=== PATIENT | male | born 1960 | race Hispanic/Latino ===

== ENCOUNTER 2021-01-03 08:18 | Emergency (ER) | payer BC ==
[2021-01-03] MEDS ORDERED: KETOROLAC 30 MG/1 ML INJ IM ONE (09:17)
--- NOTE | 2021-01-03 09:36 | Emergency Department Report ---
HPI - General Chief Complaint: Fall Time Seen by Provider: 01/03/21 09:05 - HPI HPI: 60-year-old male presents to the emergency department with a complaint of left lower rib pain since having a fall 2 nights ago, the night of . Patient says that he was doing something in his kitchen when his dog got between his feet and caused him to fall directly forward onto his chest onto the stone kitchen floor. Since that time he has been sharp spasmodic pain to the rib cage that worsens with movements and deep breathing. He tried a tramadol for his pain without any relief. He has a past medical history of hypertension, bipolar disorder, and disc disease. ED Past Medical Hx - Past Medical History Hx Hypertension: Yes Hx Arthritis: Yes Hx Psychiatric Treatment: Yes (bipolar) - Surgical History Additional Surgical History: "numerous ortho" - Social History Smoking Status: Current Every Day Smoker - Medications Home Medications: Home Medications Medication Instructions Recorded Confirmed Last Taken Type Aspirin EC [Halfprin EC] 81 mg PO QDAY 04/10/14 03/26/16 03/26/16 History Divalproex Sodium [Depakote] 125 mg PO BID 04/10/14 03/26/16 03/25/16 History atenoloL [Tenormin] 50 mg PO DAILY 04/10/14 03/26/16 03/25/16 History Meloxicam 15 mg PO DAILY 03/26/16 03/26/16 03/25/16 History Zolpidem Tartrate 10 mg PO QHS PRN 03/26/16 03/26/16 03/25/16 History HYDROcodone/APAP 5-325 [Heaters 1 each PO Q6HR PRN #12 tablet 01/03/21 Unknown Rx 5/325] ED Review of Systems ROS: Stated complaint: FALL Other details as noted in HPI Comment: All other systems reviewed and negative Constitutional: denies: chills, fever Eyes: denies: eye pain, vision change ENT: denies: ear pain, throat pain Respiratory: denies: cough, shortness of breath Cardiovascular: chest pain (Left-sided lower rib pain). denies: edema Gastrointestinal: denies: abdominal pain, vomiting Genitourinary: denies: dysuria, discharge Musculoskeletal: denies: back pain, arthralgia Skin: denies: rash, lesions Neurological: denies: headache, weakness Physical Exam - Physical Exam Vital Signs: Vital Signs 01/03/21 08:18 Temperature 97.6 F Pulse Rate 87 Respiratory 18 Rate Blood Pressure 197/103 [Right] O2 Sat by Pulse 94 Oximetry Physical Exam: GENERAL: The patient is well-developed well-nourished. HENT: Normocephalic. Atraumatic. Patient has moist mucous membranes. EYES: Extraocular motions are intact. NECK: Supple. Trachea is midline. CHEST/LUNGS: Clear to auscultation. There is no respiratory distress noted. There is reproducible tenderness to palpation to the left lateral lower rib cage. No crepitus or deformity. HEART/CARDIOVASCULAR: Regular. There is no tachycardia. There is no murmur. ABDOMEN: Abdomen is soft, nontender. Patient has normal bowel sounds. There is no abdominal distention. SKIN: Skin is warm and dry. NEURO: The patient is awake, alert, and oriented. The patient is cooperative. The patient has no focal neurologic deficits. Normal speech. MUSCULOSKELETAL: There is no tenderness or deformity. There is no limitation range of motion. BACK: No midline thoracic or lumbar tenderness to palpation. No CVA tenderness to palpation. ED Course Vital Signs 01/03/21 08:18 Temperature 97.6 F Pulse Rate 87 Respiratory 18 Rate Blood Pressure 197/103 [Right] O2 Sat by Pulse 94 Oximetry ED Medical Decision Making - Radiology Data Radiology results: image reviewed interpreted by me: X-ray of the chest with left-sided rib series does not show any pneumothorax, rib fracture, widened mediastinum, or any other acute process. - Medical Decision Making This patient presents with some left lower lateral rib pain that occurred after a fall 2 days ago. There is some reproducible tenderness to palpation in this area but there is no ecchymosis, crepitus, hematoma, or any other deformity. Chest x-ray with left-sided rib series does not show any fracture of the ribs, pneumothorax, widened mediastinum, or any other acute process. Patient was given a dose of Toradol and both appears and feels improved. Vital signs reassuring including being afebrile and no hypoxia. For all these reasons the patient appears safe for discharge home at this time with a suspected contusion of the rib cage and was given a prescription for pain medication. He has been instructed to follow-up with a primary care provider and return to the ER with any worsening of symptoms or with any acute distress. Critical Care Time: No Critical care attestation.: If time is entered above; I have spent that time in minutes in the direct care of this critically ill patient, excluding procedure time. ED Disposition Clinical Impression: Hypertension Qualifiers: Hypertension type: primary hypertension Qualified Code(s): I10 - Essential (primary) hypertension Contusion of rib on left side Qualifiers: Encounter type: initial encounter Qualified Code(s): S20.212A - Contusion of left front wall of thorax, initial encounter Disposition: HOME / SELF CARE / HOMELESS Is pt being admited?: No Condition: Stable Instructions: Rib Contusion, Hypertension, Adult, Hypertension (ED) Additional Instructions: Please follow-up with your primary care physician in the next few days. You have been prescribed a medication that is sedating and therefore should not be taken prior to driving, working, and responsible for children and in no way should be mixed with alcohol of any quantity. Take your blood pressure medication as prescribed. Try to stay away from foods that are high in salt and caffeinated products. Keep a blood pressure log. Return to the emergency department with any worsening of your symptoms, new or concerning symptoms not addressed during this current emergency department visit, or with any acute distress. Prescriptions: HYDROcodone/APAP 5-325 [Heaters 5/325] 1 each PO Q6HR PRN #12 tablet PRN Reason: Pain Referrals: PCP, Your [Other] - 2-3 Days Time of Disposition: 11:21
--- NOTE | 2021-01-03 10:24 | XRay Report ---
Left rib series with PA chest INDICATION: Left-sided chest pain following injury IMPRESSION: No pneumothorax. No pleural effusion. No displaced rib fracture is identified. Signer Name: Naveen Duran MD Signed: 01/03/2021 10:19 AM Workstation Name: [id number]
[2021-01-03 11:48] VITALS: BP 150/76
== END 2021-01-03 11:47 | disposition home or self-care (01) ==
LOC: ED 08:18
DX: S20.212A Contusion of left front wall of thorax, initial encounter (principal); F31.9 Bipolar disorder, unspecified; F17.200 Nicotine dependence, unspecified, uncomplicated; I10 Essential (primary) hypertension; W18.30XA Fall on same level, unspecified, initial encounter; Y93.89 Activity, other specified; Y92.89 Other specified places as the place of occurrence of the external cause; Y99.8 Other external cause status
CPT/HCPCS: 71101; 93005; 96372; 99283; J1885